=== PATIENT | male | born 1995 | race Caucasian/White ===

== ENCOUNTER 2016-11-17 19:21 | Emergency (ER) | payer BC ==
[2016-11-17 21:31] VITALS: BP 122/63
[2016-11-17] MEDS ORDERED: Penicillin VK TAB* 250 MG PO ONE (21:58)
--- NOTE | 2016-11-17 22:04 | UC ---
Dental HPI - HPI Summary HPI Summary: 21 YO MALE PRESENTS WITH MULTIPLE COMPLAINTS COUGH X 2 WEEKS (NON PRODUCTIVE) SORE THROAT AND FATIGUE X 4 DAYS SWELLING RIGHT LOWER MOLAR AND RIGHT JAW PAIN X 1 DAY - History of Current Complaint Chief Complaint: UCRespiratory Stated Complaint: COUGH,ST,R SIDE FACE PAIN Time Seen by Provider: 11/17/16 21:27 Hx Obtained From: Patient Onset/Duration: Lasting Days - 1 Severity: Mild Pain Intensity: 4 Pain Scale Used: 0-10 Numeric Related History: Swelling - Allergies/Home Medications Allergies/Adverse Reactions: Allergies Allergy/AdvReac Type Severity Reaction Status Date / Time No Known Allergies Allergy Verified 11/17/16 21:24 Home Medications: Home Medications Ibuprofen TAB* [Advil TAB*] 400 mg PO Q6H PRN 11/17/16 [History Confirmed ] PMH/Surg Hx/FS Hx/Imm Hx Previously Healthy: Yes - Surgical History Surgical History: None - Family History Known Family History: Positive: Hypertension - Social History Alcohol Use: Occasionally Substance Use Type: None Smoking Status (MU): Never Smoked Tobacco Review of Systems Constitutional: Fatigue - X 4 DAYS Skin: Negative Eyes: Negative ENT: Dental Pain - X 1 DAY, Sore Throat - X 4 DAYS Respiratory: Cough - X 2 WEEKS Cardiovascular: Negative Gastrointestinal: Negative Genitourinary: Negative Motor: Negative Neurovascular: Negative Musculoskeletal: Negative Neurological: Negative Psychological: Negative All Other Systems Reviewed And Are Negative: Yes Physical Exam Triage Information Reviewed: Yes Appearance: Well-Appearing, No Pain Distress, Well-Nourished Vital Signs: Initial Vital Signs Temp 98.4 F 11/17/16 21:24 Pulse 73 11/17/16 21:24 Resp 16 11/17/16 21:24 BP 122/63 11/17/16 21:24 Pulse Ox 99 11/17/16 21:24 Vital Signs Reviewed: Yes Eyes: Positive: Conjunctiva Clear ENT: Positive: Hearing grossly normal, TMs normal, Tonsillar swelling. Negative : Pharyngeal erythema, Nasal congestion, Nasal drainage, Tonsillar exudate, Trismus, Muffled/hoarse voice Dental: Positive: Other: - SEE IMAGE Neck: Positive: Supple, Nontender, Enlarged Nodes @ - ANT CERV, NO POST CERVICAL Respiratory: Positive: Lungs clear, Normal breath sounds, No respiratory distress, No accessory muscle use. Negative: Respiratory distress, Decreased breath sounds, Wheezing, Expiration Cardiovascular: Positive: RRR, No Murmur Musculoskeletal: Positive: ROM Intact, No Edema Neurological: Positive: Alert, Muscle Tone Normal Psychological Exam: Normal Skin Exam: Normal Dental Complaint Course/Dx - Course Course Of Treatment: rs (-) - Differential Dx/Diagnosis Provider Diagnoses: DENTAL PAIN, ? ABSCESS. TONSILLITIS (VIRAL) Discharge - Discharge Plan Condition: Stable Disposition: HOME Prescriptions: Penicillin VK TAB 500 MG(NF) [Penicillin VK 500 mg Tab(NF)] 500 mg PO QID #28 tab Referrals: Non Staff,Doctor [Primary Care Provider] - [facility]: 1 - SWOLLEN
[2016-11-17] MEDS ORDERED: Penicillin VK TAB* 250 MG ONE (22:16)
== END 2016-11-17 22:24 | disposition home or self-care (01) ==
LOC: UCCORT 19:21
DX: J03.80 Acute tonsillitis due to other specified organisms (principal); K08.89 Other specified disorders of teeth and supporting structures
CPT/HCPCS: 87651; 99202; A9270-GY; G0463

== ENCOUNTER 2017-01-05 09:33 | Emergency (ER) | payer BC ==
[2017-01-05 10:09] VITALS: BP 138/60
--- NOTE | 2017-01-05 11:06 | UC ---
Respiratory Complaint HPI - HPI Summary HPI Summary: Patient presents to with CC of cough and congestion x 5 day. He states [facility] and was diagnosed with an upper respiratory infection but was not given any medication. He has taken mucinex, robitussin and tylenol without relief. He endorses sore throat which has been getting worse. He denies SOB or chest pain. He endorses cough, with minimal sputum production yellow in color. He states he is not prone to sinus infections or PNA. He denies myalgias currently, but states they were present last week. He was never tested for the flu and has not received the flu vaccine this year. - History of Current Complaint Chief Complaint: UCRespiratory Stated Complaint: SORE THROAT COUGH CONGESTION Time Seen by Provider: 01/05/17 10:00 Hx Obtained From: Patient Onset/Duration: Sudden Onset Severity Initially: Moderate Severity Currently: Moderate Pain Intensity: 4 Pain Scale Used: 0-10 Numeric Character: Cough: Productive Alleviating Factors: Upright Position Associated Signs And Symptoms: Positive: URI, Nasal Congestion, Hoarseness, Sinus Discomfort - Risk Factors Pulmonary Embolism Risk Factors: Negative Cardiac Risk Factors: Negative Pseudomonas Risk Factors: Negative Tuberculosis Risk Factors: Negative - Allergies/Home Medications Allergies/Adverse Reactions: Allergies Allergy/AdvReac Type Severity Reaction Status Date / Time No Known Allergies Allergy Verified 01/05/17 10:04 PMH/Surg Hx/FS Hx/Imm Hx Previously Healthy: Yes - Surgical History Surgical History: None - Family History Known Family History: Positive: Hypertension - Social History Occupation: Employed Full-time Lives: With Family Alcohol Use: Occasionally Substance Use Type: None Smoking Status (MU): Never Smoked Tobacco Have You Smoked in the Last Year: No - Immunization History Most Recent Influenza Vaccination: NONE Most Recent Tetanus Shot: UTD Most Recent Pneumonia Vaccination: N/A Review of Systems Constitutional: Fatigue Skin: Negative Eyes: Negative ENT: Sore Throat, Ear Ache, Nasal Discharge Respiratory: Cough Cardiovascular: Negative Gastrointestinal: Negative Neurovascular: Negative Musculoskeletal: Negative Psychological: Negative All Other Systems Reviewed And Are Negative: Yes Physical Exam Triage Information Reviewed: Yes Appearance: Well-Appearing, No Pain Distress, Well-Nourished Vital Signs: Initial Vital Signs Temp 98 F 01/05/17 10:05 Pulse 96 01/05/17 10:05 Resp 18 01/05/17 10:05 BP 138/60 01/05/17 10:05 Pulse Ox 98 01/05/17 10:05 Vital Signs Reviewed: Yes Eye Exam: Normal Eyes: Positive: Conjunctiva Clear ENT: Positive: Nasal drainage, TMs normal, Tonsillar swelling Dental Exam: Normal Neck exam: Normal Neck: Positive: Supple, Nontender, No Lymphadenopathy Respiratory Exam: Normal Respiratory: Positive: Chest non-tender, Lungs clear Cardiovascular Exam: Normal Musculoskeletal Exam: Normal Musculoskeletal: Positive: Strength Intact, ROM Intact Neurological Exam: Normal Neurological: Positive: Alert Psychological: Positive: Age Appropriate Behavior Skin Exam: Normal Diagnostic Evaluation - Laboratory O2 Sat by Pulse Oximetry: 98 Respiratory Course/Dx - Course Course Of Treatment: Patient c/o cough, congestion, nasal drainage, sputum production, head fullness and sore throat. Patient has been trying OTC robitussin, tylenol and mucinex without relief. Patient encouraged to use neti pot, rest, drink plenty of fluids, prednisone, mucinex and robitussin with codeine only at night given. Claritin for 10 days. Patient OK with plan and OK for discharge. Patient educated about antibiotics and difference between bacterial and viral illness. Patient agrees he does not need abx at this point and will try OTC medications and return to if symptoms persist. - Differential Dx/Diagnosis Differential Diagnosis/HQI/PQRI: Bronchitis, Influenza, Laryngitis, Sinusitis Provider Diagnoses: Upper Respiratory Infection Discharge - Discharge Plan Condition: Stable Disposition: HOME Prescriptions: Loratadine & Pseudoephedrine [Claritin-D 24 Hour 10-240 mg] 1 tab PO ONCE #10 tab guaiFENesin ER TAB [Mucinex*] 1,200 mg PO DAILY #12 tab.er MDD 1 guaiFENesin/CODIEN 100MG-10MG* [Robitussin AC 100Mg-10Mg*] 10 ml PO BEDTIME PRN #60 udc MDD 10 PRN Reason: Cough predniSONE TAB* [Deltasone TAB*] 50 mg PO DAILY #5 tab MDD 1 Patient Education Materials: Upper Respiratory Infection (ED) Forms: *Work Release Referrals: Non Staff,Doctor [Primary Care Provider] - Additional Instructions: Use neti pot for sinus congestion and head fullness Claritin daily for 10 days Prednisone in the morning for 5 days Robitussin with codeine - 10mg at bedtime or 2 teaspoons Mucinex once in the morning. Drink plenty of fluids. A humidifier in the home can help with congestion during the colder months. Take any medication prescribed to you as directed. If you have any questions regarding your medications, you may call the office or your pharmacist. If your symptoms fail to improve or worsen, please call your primary care provider, come back to urgent care or the emergency room.
== END 2017-01-05 11:01 | disposition home or self-care (01) ==
LOC: UCCORT 09:33
DX: J06.9 Acute upper respiratory infection, unspecified (principal)
CPT/HCPCS: 87651; 99212; G0463

== ENCOUNTER 2017-07-23 19:51 | Emergency (ER) | payer BC ==
[2017-07-23] MEDS ORDERED: predniSONE TAB* 20 MG PO ONE (21:00)
[2017-07-23] MEDS ORDERED: HYDROcodone/ACETAMIN 5-325 MG* 1 TAB PO ONE (21:00)
--- NOTE | 2017-07-23 21:08 | UC ---
Hand/Wrist HPI - HPI Summary HPI Summary: right wrist x 3 days] the pain is sever, volar aspect, no known injury has a mild pain for few months but now the pain is sever no swelling, no redness - History Of Current Complaint Stated Complaint: RIGHT HAND/WRIST PAIN Time Seen by Provider: 07/23/17 20:42 Hx Obtained From: Patient Onset/Duration: Gradual Onset, Lasting Days - 3, Still Present Severity Initially: Moderate Severity Currently: Severe Character Of Pain: Sharp Aggravating Factor(s): Movement, Flexion, Extension Alleviating Factor(s): Nothing Associated Signs And Symptoms: Positive: Weakness, Numbness/Tingling. Negative : Swelling, Redness, Bruising, Fever - Allergies/Home Medications Allergies/Adverse Reactions: Allergies Allergy/AdvReac Type Severity Reaction Status Date / Time No Known Allergies Allergy Verified 01/05/17 10:04 PMH/Surg Hx/FS Hx/Imm Hx Previously Healthy: Yes - Surgical History Surgical History: None - Family History Known Family History: Positive: Hypertension - Social History Alcohol Use: Occasionally Substance Use Type: None Smoking Status (MU): Never Smoked Tobacco Have You Smoked in the Last Year: No - Immunization History Most Recent Influenza Vaccination: NONE Most Recent Tetanus Shot: UTD Most Recent Pneumonia Vaccination: N/A Review of Systems Constitutional: Negative Skin: Negative Eyes: Negative ENT: Negative Respiratory: Negative Cardiovascular: Negative Is Patient Immunocompromised?: No All Other Systems Reviewed And Are Negative: Yes Physical Exam Triage Information Reviewed: Yes Appearance: Well-Nourished, Pain Distress Vital Signs Reviewed: Yes Eyes: Positive: Conjunctiva Clear ENT Exam: Normal ENT: Positive: Normal ENT inspection, Hearing grossly normal, Pharynx normal Neck exam: Normal Neck: Positive: Supple, Nontender, No Lymphadenopathy Respiratory: Positive: Chest non-tender, Lungs clear, Normal breath sounds Cardiovascular Exam: Normal Cardiovascular: Positive: RRR, No Murmur, Pulses Normal Musculoskeletal: Positive: Other: - right wirst : no swelling, no erythema, sever tenderness along the median nerve limited ROM on flexion and extension Hand/Wrist Course/Dx - Differential Dx/Diagnosis Provider Diagnoses: right wrist pain Discharge - Discharge Plan Condition: Stable Disposition: HOME Prescriptions: Hydrocodone-Acetaminophen [Hydrocodone/Acetaminophen 5-325 mg] 1 tab PO Q6H PRN #15 tab MDD 4 TABS PRN Reason: Pain predniSONE TAB* [Deltasone TAB*] 40 mg PO DAILY #10 tab Patient Education Materials: Paresthesia (ED) Referrals: Non Staff,Doctor [Primary Care Provider] - 5 Days Additional Instructions: right wrist shooting pain , no injury ? carpal tunnel sx cont. with rest, ice, wrist splint, prednisone 40 mg daily x 5 days vicodin as needed for sever pain follow up in 5 days if not better, may need a referral to ortho for eval and tx
[2017-07-23 21:29] VITALS: BP 132/61
== END 2017-07-23 21:41 | disposition home or self-care (01) ==
LOC: UCCORT 19:51
DX: M25.531 Pain in right wrist (principal)
CPT/HCPCS: 99213; G0463; J7512

== ENCOUNTER 2018-07-28 09:48 | Emergency (ER) | payer BC ==
[2018-07-28 10:33] VITALS: BP 128/74
--- NOTE | 2018-07-28 10:41 | UC ---
UC General HPI - HPI Summary HPI Summary: sore throat, congestion, cough, body aches and headache x 2 days - History of Current Complaint Chief Complaint: UCGeneralIllness Stated Complaint: SORE THROAT, CONGESTION, HEADACHE Time Seen by Provider: 07/28/18 10:27 Hx Obtained From: Patient Onset/Duration: Gradual Onset Timing: Constant Pain Intensity: 7 Alleviating: nothing Associated Signs & Symptoms: Negative: Fever - Allergy/Home Medications Allergies/Adverse Reactions: Allergies Allergy/AdvReac Type Severity Reaction Status Date / Time cat hair Allergy Itching Uncoded 07/28/18 10:26 Home Medications: Home Medications Acetaminophen/Dextromethorphan [Daytime Cold & Cough Liquid] 1 dose PO ONCE 04/07 [History Confirmed 07/28/18] PMH/Surg Hx/FS Hx/Imm Hx Previously Healthy: Yes - Surgical History Surgical History: None - Family History Known Family History: Positive: Hypertension - Social History Occupation: Student Alcohol Use: Occasionally Substance Use Type: None Smoking Status (MU): Never Smoked Tobacco Have You Smoked in the Last Year: No - Immunization History Most Recent Influenza Vaccination: NONE Most Recent Tetanus Shot: UTD Most Recent Pneumonia Vaccination: N/A Vaccination Up to Date: Yes Review of Systems Constitutional: Fatigue Skin: Negative Eyes: Negative ENT: Sore Throat, Sinus Congestion Respiratory: Cough Cardiovascular: Negative Gastrointestinal: Negative Genitourinary: Negative Motor: Negative Neurovascular: Negative Musculoskeletal: Myalgia Neurological: Headache Psychological: Negative Is Patient Immunocompromised?: No All Other Systems Reviewed And Are Negative: Yes Physical Exam Triage Information Reviewed: Yes Appearance: Well-Appearing Vital Signs: Initial Vital Signs Temp 98.1 F 07/28/18 10:27 Pulse 96 07/28/18 10:27 Resp 15 07/28/18 10:27 BP 128/74 07/28/18 10:27 Pulse Ox 100 07/28/18 10:27 Eye Exam: Normal Eyes: Positive: Conjunctiva Clear ENT: Positive: Pharyngeal erythema - and tonsillar erythema, Nasal congestion, TMs normal, Uvula midline. Negative: Nasal drainage, Tonsillar exudate, Trismus , Muffled voice, Hoarse voice, Sinus tenderness Neck: Positive: Supple, Nontender, No Lymphadenopathy Respiratory: Positive: Lungs clear, Normal breath sounds, No respiratory distress Cardiovascular: Positive: RRR, No Murmur Abdomen Description: Positive: Nontender, No Organomegaly, Soft. Negative: Distended, Guarding Bowel Sounds: Positive: Present Musculoskeletal: Positive: ROM Intact Neurological: Positive: Alert Psychological: Positive: Age Appropriate Behavior Skin Exam: Normal Diagnostics - Laboratory Diagnostic Studies Completed/Ordered: rapid strep=neg Course/Dx - Course Course Of Treatment: rapid strep=neg, non toxic, tx supportive - Differential Dx - Multi-Symptom Provider Diagnoses: sore throat, uri, cough Discharge - Sign-Out/Discharge Documenting (check all that apply): Patient Departure All imaging exams completed and their final reports reviewed: No Studies - Discharge Plan Condition: Stable Disposition: HOME Patient Education Materials: Viral Syndrome (ED) Referrals: [facility] [Outside] Additional Instructions: FOLLOW UP IN 5-7 DAYS IF NOT BETTER OR IMMEDIATELY FOR ANY WORSENING. - Billing Disposition and Condition Condition: STABLE Disposition: Home
== END 2018-07-28 11:11 | disposition home or self-care (01) ==
LOC: UCCORT 09:48
DX: J02.9 Acute pharyngitis, unspecified (principal); J06.9 Acute upper respiratory infection, unspecified; J30.81 Allergic rhinitis due to animal (cat) (dog) hair and dander
CPT/HCPCS: 87651; 99211; G0463